=== PATIENT | male | born 1965 | race Two or more races ===

== ENCOUNTER → 2022-08-07 16:04 | Outpatient (BNVA) | payer MEDICAID, SELFPAY | PROVIDERS: Visit Provider Internal Medicine Endocrinology, Diabetes & Metabolism | DX: E04.1 Nontoxic single thyroid nodule (principal) | CPT/HCPCS: 99202 ==

== ENCOUNTER 2022-10-03 08:34 | Outpatient (REF) | payer MEDICAID, SELFPAY ==
--- NOTE | 2022-10-03 09:13 | PM.OP ---
Brief Operative Note Date of Service: 10/03/22 Pre-op diagnosis: Thyroid Nodule Procedure: This is doctor Chen Padilla. This is an ultrasound-guided fine-needle aspiration report. Date of Examination: 10/03/2022 Indication: Multinodular Thyroid Porcedure: Procedure was explained to the patient. Alternatives, the risk and benefits were discussed. Written consent was obtained. A time-out was also obtained. Subcutaneous administration of 1 ml of 1% lidocaine solution was completed for anesthetic effect. After sterile preparation, fine-needle aspiration of a right lower pole 2.6 cm thyroid nodule was performed using direct ultrasound guidance to confirm accurate needle placement. Five aspirations were made using 27 gauge needles. Samples were submitted for cytology. 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 The patient tolerated the procedure well. Aftercare instructions were provided. Impression: Uncomplicated fine needle aspiration biopsy of a right lower pole 2.6 cm thyroid nodule under ultrasound guidance. Surgeon: Chen Padilla, DO Was an Director Search Marketing Strategies used for this Procedure?: No Estimated blood loss (mL): 0
[2022-10-03] MEDS: Lidocaine HCl 1 % MPF 5 ML VIAL SUBCUT (09:39)
== END 2022-10-03 08:35 | disposition home or self-care (01) ==
LOC: HO.US 08:34
PROVIDERS: Visit Provider Internal Medicine Endocrinology, Diabetes & Metabolism
DX: E04.1 Nontoxic single thyroid nodule (principal)
CPT/HCPCS: 10005; 88173; 88305

== ENCOUNTER → 2022-10-17 10:04 | Outpatient (BNVA) | payer MEDICAID, SELFPAY | PROVIDERS: Visit Provider Internal Medicine Endocrinology, Diabetes & Metabolism | DX: E04.1 Nontoxic single thyroid nodule (principal); Z98.890 Other specified postprocedural states | CPT/HCPCS: 99212 ==

== ENCOUNTER 2023-01-03 08:42 | Outpatient (REF) | payer MEDICAID, SELFPAY ==
--- NOTE | 2023-01-03 09:12 | P.BOP_ITS ---
Brief Operative Note Date of Service: 01/03/23 Pre-op diagnosis: Thyroid Nodule Procedure: This is doctor Chen Padilla. This is an ultrasound-guided fine-needle aspiration report. Date of Examination: 01/03/2023 Indication: Multinodular Thyroid Porcedure: Procedure was explained to the patient. Alternatives, the risk and benefits were discussed. Written consent was obtained. A time-out was also obtained. After sterile preparation, 1 ml of 1% lidocaine solution was applied subcutaneously for anesthetic effect. Then Fine-needle aspiration of a right lower pole 2.6 cm thyroid nodule was performed using direct ultrasound guidance to confirm accurate needle placement. Three aspirations were made using 25 gauge needles. Samples were submitted for cytology. One pass was dedicated for Afirma Gene sequencing compressor battery pellets testing. The patient tolerated the procedure well. Aftercare instructions were provided. Impression: Uncomplicated fine needle aspiration biopsy of a right lower pole 2.6 cm thyroid nodule under ultrasound guidance. Surgeon: Chen Padilla, DO Was an [employer] used for this Procedure?: No Estimated blood loss (mL): 0
[2023-01-03] MEDS: Lidocaine HCl 1 % MPF 5 ML VIAL SUBCUT (09:32)
== END 2023-01-03 08:43 | disposition home or self-care (01) ==
LOC: HO.US 08:42
PROVIDERS: Visit Provider Internal Medicine Endocrinology, Diabetes & Metabolism
DX: E04.1 Nontoxic single thyroid nodule (principal)
CPT/HCPCS: 10005; 88172; 88173; 88177; 88305

== ENCOUNTER → 2023-01-29 15:13 | Outpatient (BNVA) | payer MEDICAID, SELFPAY | PROVIDERS: Visit Provider Internal Medicine Endocrinology, Diabetes & Metabolism | DX: E04.1 Nontoxic single thyroid nodule (principal) | CPT/HCPCS: 99212 ==

== ENCOUNTER 2023-09-16 11:08 | Outpatient (REF) | payer MEDICAID, SELFPAY ==
[2023-09-16 13:05] LABS: Free T4 (Free Thyroxine) 0.73 ng/dL (0.71-1.85); Thyroid Stimulating Hormone 1.33 uIU/mL (0.32-4.0)
== END 2023-09-16 11:09 | disposition home or self-care (01) ==
LOC: HO.LAB 11:08
PROVIDERS: PCP Internal Medicine; Visit Provider Internal Medicine Endocrinology, Diabetes & Metabolism
DX: E04.1 Nontoxic single thyroid nodule (principal)
CPT/HCPCS: 36415; 84439; 84443

== ENCOUNTER 2023-09-17 15:38 | Outpatient (AMB) | payer MEDICAID, SELFPAY ==
--- NOTE | 2023-09-17 15:39 | A.OFFVIS_ITS ---
Intake Vital Signs 09/17/23 15:40 Weight 238 lb 15.697 oz BP 150/78 H Blood Pressure Location Lt brachial Position Sitting Pulse 57 Pulse Source Pulse Oximeter Intake Visit Reasons: Thyroid nodule-CONFIRMED Intake Note: Patient present today for Thyroid nodule follow up visit. Hip Hop Dancer Required: No Accompanied by: Self / Same As Patient Allergies morphine Allergy (Unknown, Verified 09/17/23 15:46) Pass out HPI HPI Comments History of Present Illness Details 58 YO M with who is seen in consultatio n for multinodular thyroid at the request of PCP. Was initially diagnosed with multinodular thyroid in recently with thyroid US revealing R nodule . Currently denies any dysphagia but does have hoarseness of voice. Denies sensation of swelling in the neck or difficulty breathing while lying flat. Denies any tenderness in the neck. Denies any palpitations, tremors, weight loss, frequent bowel movements. Denies any ocular complaints, blurred or double vision. Denies hair loss, dry skin, heat or cold intolerance, weight gain, confusion. Denies any history of head or neck irradiation. Denies any family history of thyroid cancer. Had biopsy of nodules in the past. Thyroid US: 2.6 cm right thyroid nodule per PCP note. He underwent FNA of the right thyroid nodule with inadequate cytology Labs:cytology showed AUS but Affirma negative [facility] Medical History (Updated 08/07/22 @ 16:15 by Del Wharton MD) Thyroid nodule Surgical History History of appendectomy History of repair of ACL History of surgery History of surgery Family History Mother High blood pressure Father History of quadruple bypass High blood pressure Stroke High cholesterol (Updated 10/17/22 @ 10:10 by PRAMOD Higuera) Household Members: Family Household Members Other:: mom Alcohol intake: never Patient Tobacco Use Status: Never used Tobacco Substance Use Type: Marijuana Physical Exam HEENT reveals absence of lid lag , stare or proptosis or eyebrow loss. Thyroid gland measure 15 gms . No nodules or tenderness palpated. There is no cervical adenopathy palpated. Lungs CTA. Heart S1, S2 Reg R/R -M/R/G. Abdominal exam benign. Skin exam reveals absence of dryness or thyroid dermopathy or vitiligo. Nail exam reveals absence of thyroid acropachy or oncholysis. Neurologic exam reveals 2+ reflexes . Muscle Strength is 5/5 proximally. There are no tremors in upper extremities. Assessment & Plan Assessment & Plan (1) Thyroid nodule: Code(s): E04.1 - Nontoxic single thyroid nodule Plan: This 58-year-old black male with history of right thyroid nodule. He appears to be clinically euthyroid. he underwent FNA of right nodule withAUS cytology but negative Affirma Plan is obtain a repeat thyroid ultrasound and review when available Coding Level of Care Code Est Pt Level 3 (54450) Diagnoses Thyroid nodule E04.1
[2023-09-17 15:40] VITALS: BP 150/78; PULSE 57
== END 2023-09-17 15:53 | disposition home or self-care (01) ==
PROVIDERS: PCP Internal Medicine; Referring Provider Internal Medicine; Visit Provider Internal Medicine Endocrinology, Diabetes & Metabolism
DX: E04.1 Nontoxic single thyroid nodule (principal)
CPT/HCPCS: 99213

== ENCOUNTER → 2023-09-17 15:38 | Outpatient (BNVA) | payer MEDICAID, SELFPAY | PROVIDERS: Visit Provider Internal Medicine Endocrinology, Diabetes & Metabolism | DX: E04.1 Nontoxic single thyroid nodule (principal) | CPT/HCPCS: 99212 ==